=== PATIENT | male | born 1985 | race African-American/Black ===

== ENCOUNTER 2020-03-08 20:47 | Emergency (ER) | payer MEDICAID, OTHER ==
[~2020-03-08] VITALS: Ht 177.8 cm; Wt 84.0 kg
[~2020-03-08 20:47] MED LIST: ALBU05
[2020-03-08] MEDS ORDERED: IBUPROFEN 800MG TABLET PO ONE (23:00)
[2020-03-08] MEDS ORDERED: ACETAMINOPHEN 500MG TABLET PO ONE (23:00)
[2020-03-09 01:08] VITALS: BP 121/65
== END 2020-03-09 01:09 | disposition home or self-care (01) ==
LOC: ER 20:47
DX: S12.401A Unspecified nondisplaced fracture of fifth cervical vertebra, initial encounter for closed fracture (principal); V43.52XA Car driver injured in collision with other type car in traffic accident, initial encounter; Y93.89 Activity, other specified; Y92.488 Other paved roadways as the place of occurrence of the external cause
CPT/HCPCS: 72040; 99283

== ENCOUNTER 2020-03-10 14:28 | Emergency (ER) | payer MEDICAID ==
[~2020-03-10] VITALS: Ht 180.3 cm; Wt 84.0 kg
[2020-03-10] MEDS ORDERED: ACETAMINOPHEN WITH CODEINE 300/30MG TABLET PO ONE (15:30)
[2020-03-10 15:38] VITALS: BP 100/47
== END 2020-03-10 16:31 | disposition home or self-care (01) ==
LOC: ER 14:28
DX: M54.2 Cervicalgia (principal); Z87.828 Personal history of other (healed) physical injury and trauma
CPT/HCPCS: 99284

== ENCOUNTER 2023-04-06 21:14 | Emergency (ER) | payer MEDICAID, OTHER ==
[~2023-04-06] VITALS: Ht 180.3 cm; Wt 77.0 kg
[2023-04-06 21:26] VITALS: BP 137/88
[2023-04-06 23:02] LABS: HEMATOCRIT. 40.8 % (42.0-52.0); HEMOGLOBIN. 13.8 g/dL (14.0-18.0); LYMPHOCYTES % 21.5 % (20.0-50.0); MEAN CORPUSCULAR HEMOGLOBIN 31.6 pg (28.0-32.0); MEAN CORPUSCULAR VOLUME 93.4 fL (80.0-94.0); MEAN PLATELET VOLUME 8.5 fl (7.4-10.4); MONOCYTES % 8.3 % (2.0-8.0); NEUTROPHILS % 69.2 % (40.0-76.0); PLATELET 256 x1000/uL (130-400); RED BLOOD CELL COUNT 4.37 mill/uL (4.7-6.1); RED CELL DISTRIBUTION WIDTH 14.8 % (11.6-14.6)
[2023-04-06 23:06] LABS: CHLORIDE 107 mEq/L (98-107)
[2023-04-07] MEDS ORDERED: PROT40 MT (01:36)
[2023-04-07] MEDS ORDERED: MAGNESIUM/ALUMINUM HYDROXIDE/SIMETHICONE 30ML UDC PO STA (01:52)
[2023-04-07] MEDS ORDERED: VISCOUS LIDOCAINE 2% 15 ML UDC PO STA (01:52)
== END 2023-04-07 01:58 | disposition home or self-care (01) ==
LOC: ER 21:14
DX: R10.13 Epigastric pain (principal); G89.29 Other chronic pain
CPT/HCPCS: 36415; 80053; 85025; 99283